=== PATIENT | male | born 1940 | race Asian ===

== ENCOUNTER → 2017-03-29 | Day surgery (SDC) | payer MEDICARE ==
[~2017-03-29] MED LIST: HEPARIN SODIUM - IV 10,000 UNITS/10 ML VIAL ONE; LIDOCAINE 1%/EPINEPHrine 1:100,000 SOLN 20 ML VIAL ONE; MIDAZOLAM HCL 2 MG/2 ML VIAL ONE; PROPOFOL 500 MG/50 ML BTL IV ONE; SODIUM CHLORID 0.9% 500 ML BAG ONE; ceFAZolin INJ 1,000 MG VIAL ONE
--- NOTE | 2017-04-02 08:24 | MP ---
cc: MARTY MONTELONGO DATE OF SURGERY 03/29/17 PREOPERATIVE DIAGNOSIS Chronic kidney disease with need for permanent hemodialysis access. POSTOPERATIVE DIAGNOSIS Chronic kidney disease with need for permanent hemodialysis access. PROCEDURE Right brachial basilic AV fistula creation. SURGEON Sindi Montelongo MD ANESTHESIA Local MAC DESCRIPTION OF PROCEDURE With the patient in the supine position, IV sedation was induced, the right arm prepped with Betadine and draped in a sterile fashion. One gram of Ancef was administered prophylactically and, following a protocol time-out, skin and subcutaneous tissue along the medial supra-antecubital area infiltrated with 0.5% Marcaine with epinephrine. A curvilinear incision was performed through which the basilic vein and brachial artery were circumferentially mobilized. The vein was ligated distally with 4-0 silk, transected proximal to the ligature, spatulated on end, flushed with heparinized saline and occluded with a Yasargil clip. The brachial artery was occluded proximally and distally with Yasargil clips. A vertical 4-mm arteriotomy was performed along the inferomedial surface. The artery was flushed proximally and distally with heparinized saline. An end-to-side anastomosis was performed between the vein and arteriotomy with continuous 7-0 Prolene. The occluding Yasargil clips were then removed reestablishing pulsatile flow within the brachial artery as well as to the basilic vein. Strict hemostasis was assured along with normal perfusion within the right hand. The incision was closed with interrupted subcutaneous 4-0 Monocryl, continuous subcuticular 5-0 Monocryl, reinforced with Steri-Strips and covered with sterile gauze. Instrument, needle, sponge count correct x2. No operative complications. The patient returned to the recovery room in stable condition having tolerated procedure well. MD EMMANUEL Farrell/ /4:52 PM /8:21 AM
== END | disposition home or self-care (01) ==
LOC: ESDC 14:09
PROVIDERS: ATTEND Surgery Vascular Surgery
DX: N18.6 End stage renal disease (principal)
CPT/HCPCS: 01844; 36821; J0690; J1644; J7040; J2250

== ENCOUNTER → 2017-05-31 | Day surgery (SDC) | payer MEDICARE ==
[~2017-05-31] MED LIST changes: +PROPOFOL 100 MG/10 ML INJ IV ONE; -PROPOFOL 500 MG/50 ML BTL IV ONE; +SODIUM CHLOR 0.9% 1000 ML BAG IV ONE; -SODIUM CHLORID 0.9% 500 ML BAG ONE
--- NOTE | 2017-06-01 11:23 | MP ---
cc: MARTY MONTELONGO DATE OF SURGERY May 31, 2017 PREOPERATIVE DIAGNOSES 1. Chronic kidney disease. 2. Matured, deep right [id number] A-V fistula. POSTOPERATIVE DIAGNOSES 1. Chronic kidney disease. 2. Matured, deep right [id number] A-V fistula. OPERATIVE PROCEDURE Transposition right brachiobasilic A-V fistula. SURGEON Rohit Montelongo MD ANESTHESIA Local MAC. DESCRIPTION OF THE OPERATIVE PROCEDURE With the patient in the supine position and under IV sedation, the right arm, axilla and shoulder were prepped with Betadine and draped in a sterile fashion. Appropriate IV antibiotic prophylaxis was administered and following a protocol time-out, the skin and subcutaneous tissue along the course of the matured right brachiobasilic A-V fistula preemptively infiltrated with 1% Xylocaine with epinephrine. A curvilinear incision was performed along the course of the arterialized basilic vein which was mobilized free of the surrounding adipose tissue, collateral venous branches individually ligated in continuity with hemoclips and divided. The vein was superficialized and fascia secured deep to the superficialized vein with continuous 4-0 Monocryl. A superficial skin flap was dissected superolaterally. The incision was closed with interrupted subcutaneous 4-0 Monocryl, continuous subcuticular 5-0 Monocryl, reinforced with Steri-Strips and covered with sterile gauze. Instrument, needle and sponge count correct x 2. No operative complications. The patient returned to the recovery room in stable condition having tolerated the procedure well. MD EMMANUEL Farrell/SHAYNA /8:10 AM /11:22 AM
== END | disposition home or self-care (01) ==
LOC: ESDC 12:47
PROVIDERS: ATTEND Surgery Vascular Surgery
DX: N18.6 End stage renal disease (principal)
CPT/HCPCS: 01844; 36819; J0690; J1644; J2250; J3010; J7030